=== PATIENT | female | born 1980 | race Caucasian/White ===

== ENCOUNTER → 2017-01-16 | Outpatient (CLI) | payer OTHER ==
[~2017-01-16] MED LIST: GADAVIST IV PRN
--- NOTE | 2017-01-16 12:07 | DIAGNOSTIC IMAGING REPORT ---
MRI OF THE BRAIN WITHOUT AND WITH IV CONTRAST CLINICAL HISTORY: CHIARI Malformation, headache TR malformation COMPARISON STUDY: No previous studies for comparison. TECHNIQUE: Utilizing a 1.5 Betty magnet and dedicated coil, multiplanar, multiecho imaging of the brain was performed pre and postcontrast administration. IV administration of 8.5 mL of Gadavist contrast was uneventful. 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 There is no evidence for hydrocephalus. Diffusion-weighted images show no evidence for an acute ischemic insult. Ventricular system is midline. Sella and parasellar regions are unremarkable. Internal auditory canals are symmetric. Note is made of moderate mucosal thickening of the left maxillary sinus. IMPRESSION: 1. Tear 1 malformation. 2. No evidence for hydrocephalus. 3. Normal signal characteristics of the cerebellar as well as cerebral hemispheres. Electronically signed by: Vik Cotto M.D. 01/16/2017 12:06 PM Dictated Date/Time: 01/16/2017 12:02 PM
== END | disposition home or self-care (01) ==
LOC: C.OPENMRI 10:46
PROVIDERS: ATTEND Physician Assistant
DX: G93.5 Compression of brain (principal); R51 Headache

== ENCOUNTER → 2017-09-27 | Outpatient (CLI) | payer OTHER ==
[2017-09-27 18:06] LABS: BASO % 0.4 %; BASO ABS # 0.03 K/uL (0-0.2); EOS % 2.6 %; EOS ABS # 0.21 K/uL (0-0.5); HEMATOCRIT 39.8 % (37-47); HEMOGLOBIN 13.4 g/dL (12.0-16.0); IG# 0.02 K/uL (0.00-0.02); LYMPH ABS # 2.72 K/uL (1.2-3.4); MEAN CORPUSCULAR HGB CONC 33.7 g/dl (32-36); MONO % 7.9 %; MONO ABS # 0.65 K/uL (0.11-0.59); NEUT % 55.9 %; PLATELET COUNT 238 K/uL (130-400); RED CELL DISTRIBUTION WIDTH CV 12.8 % (11.5-14.5); RED CELL DISTRIBUTION WIDTH SD 41.4 fL (36.4-46.3); WHITE BLOOD COUNT 8.23 K/uL (4.8-10.8)
[2017-09-27 18:18] LABS: ALBUMIN 3.7 gm/dl (3.4-5.0); ALKALINE PHOSPHATASE 61 U/L (45-117); ALT/SGPT 16 U/L (12-78); AST/SGOT 10 U/L (15-37); BLOOD UREA NITROGEN 13 mg/dl (7-18); CALCIUM 8.9 mg/dl (8.5-10.1); CARBON DIOXIDE 26 mmol/L (21-32); GLUCOSE 81 mg/dl (70-99); LIPASE 209 U/L (73-393); POTASSIUM 4.1 mmol/L (3.5-5.1); SODIUM 138 mmol/L (136-145); TOTAL PROTEIN 7.4 gm/dl (6.4-8.2)
== END | disposition home or self-care (01) ==
LOC: C.LABMFLN 16:45
PROVIDERS: ATTEND Family Medicine
DX: Z00.00 Encounter for general adult medical examination without abnormal findings (principal); R10.12 Left upper quadrant pain